=== PATIENT | male | born 1980 | race African-American/Black ===

== ENCOUNTER 2024-01-31 14:04 | Inpatient (IN) | payer OTHER ==
[2024-01-31 15:27] VITALS: BMI 22.3
[2024-01-31] MEDS ORDERED: guaiFENesin 600 MG TABLET.ER (FP) PO PRN (16:47)
[2024-01-31] MEDS ORDERED: IBUPROFEN 600 MG TABLET (FP) PO PRN (16:47)
[2024-01-31] MEDS ORDERED: BENZOCAINE/MENTHOL (CHLORASEPTIC ) LOZENGE MM PRN (16:47)
[2024-01-31] MEDS ORDERED: hydrOXYzine PAMOATE 25 MG CAPSULE (FP) PO PRN (16:47)
[2024-01-31] MEDS ORDERED: BENZONATATE 200 MG CAPSULE PO PRN (16:47)
[2024-01-31] MEDS ORDERED: ACETAMINOPHEN 325 MG TABLET (FP) PO PRN (16:47)
[2024-01-31] MEDS ORDERED: IBUPROFEN 400 MG TABLET (FP) PO PRN (16:47)
[2024-01-31] MEDS ORDERED: NICOTINE POLACRILEX 2 MG LOZENGE BC PRN (16:47)
[2024-01-31] MEDS ORDERED: LOPERAMIDE HCL 2 MG CAPSULE PO PRN (16:47)
[2024-01-31] MEDS ORDERED: NICOTINE POLACRILEX 2 MG GUM BUC PRN (16:47)
[2024-01-31] MEDS ORDERED: TUBERCULIN PPD 5 TU/0.1ML SYRINGE (IN PATIENT USE ONLY) ID ONE (20:48)
[2024-01-31] MEDS: THIAMINE 100 MG TABLET PO SCH (21:51)
[2024-01-31] MEDS: MELATONIN 5 MG TABLETS PO SCH (21:51)
[2024-02-01 00:11] LABS: URINE APPEARANCE Clear; URINE BILIRUBIN Negative (NEGATIVE); URINE COLOR Yellow; URINE GLUCOSE (UA) >=1000 (NEGATIVE); URINE KETONE Negative (NEGATIVE); URINE LEUK ESTERASE Negative (NEGATIVE); URINE NITRITE Negative (NEGATIVE); URINE PROTEIN Negative (NEGATIVE); URINE UROBILINOGEN 0.2 mg/dL (0.2-1.0)
[2024-02-01] MEDS: PRENATAL VITAMINS W/ FOLIC ACID TABLET (FP) PO SCH (09:06)
[2024-02-02] MEDS: SERTRALINE HCL 25 MG TABLET (FP) PO SCH (11:28)
[2024-02-04] MEDS: MAGNESIUM HYDROX 2400MG/30ML ORAL SUSPENSION 30 ML CUP PO PRN (09:41)
[2024-02-07] MEDS: POLYETHYLENE GLYCOL (HEALTHYLAX) 3350 17 GM PACKET PO PRN (15:17)
[2024-02-08] MEDS ORDERED: LACTULOSE 20 GM/30 ML UDC (FOR ORAL USE ONLY) PO PRN (15:24)
[2024-02-08] MEDS: metFORMIN HCL 500 MG TABLET (FP) PO SCH (17:29)
[2024-02-08] MEDS: DOCUSATE SODIUM 100 MG CAPSULE (FP) PO SCH (21:13)
[2024-02-10] MEDS: MAG HYDROX/AL HYDROX/SIMETH 30 ML UNIT-DOSE CUP PO PRN (10:10)
[2024-02-10] MEDS ORDERED: ONDANSETRON *ODT* 4 MG TABLET SL PRN (10:45)
[2024-02-10] MEDS ORDERED: NALOXONE (NYS OPIOID OVERDOSE PROGRAM) 4 MG/0.1 ML SPRAY NS PRN (14:42)
[2024-02-13 07:03] VITALS: TEMP 97.3
[2024-02-14 06:46] VITALS: BP 115/79; PULSE 89; RESP 16
== END 2024-02-14 07:17 | disposition home or self-care (01) | DRG 776 ==
LOC: YASAS 14:04 → Y3NR 18:02 → Y3E 02-01 10:04
PROVIDERS: ADMIT Psychiatry & Neurology Pain Medicine; ATTEND Psychiatry & Neurology Pain Medicine
PROC: HZ2ZZZZ Detoxification Services for Substance Abuse Treatment (ICD-10-PCS; principal; 2024-01-31)
DX: F16.20 Hallucinogen dependence, uncomplicated (principal); F19.24 Other psychoactive substance dependence with psychoactive substance-induced mood disorder; E11.9 Type 2 diabetes mellitus without complications; Z79.84 Long term (current) use of oral hypoglycemic drugs; K59.00 Constipation, unspecified
CPT/HCPCS: 71045-TC-FY; 80305; 80307; 81003; 82962; 87811; 93005; 93010